=== PATIENT | female | born 1990 ===

== ENCOUNTER 2017-03-12 00:38 | Observation (INO) | payer OTHER ==
[~2017-03-12] VITALS: Ht 160 cm; Wt 75.0 kg
[2017-03-12] VITALS (336 sets, daily range): BP systolic 89–111; BP diastolic 38–78; PULSE 63–89; TEMP 96.9–98; O2SAT 96–100
[2017-03-12] MEDS ORDERED: TOPROL XL 25MG25 MG PO (14:00)
== END 2017-03-12 14:12 | disposition home or self-care (01) ==
LOC: ICU 00:38
DX: I47.1 Supraventricular tachycardia (principal); I47.2 Ventricular tachycardia; F17.210 Nicotine dependence, cigarettes, uncomplicated
CPT/HCPCS: G0378; G0379; J1650; J2270; J7030